=== PATIENT | male | born 1945 | race Caucasian/White ===

== ENCOUNTER 2022-12-12 12:48 | Emergency (ER) | payer OTHER, MEDICAID ==
[2022-12-12] MEDS ORDERED: Naloxone 0.4 MG/ML SDV IVPUSH PRN (14:03)
[2022-12-12 14:11] LABS: ALBUMIN 3.6 g/dL (3.4-5.0); ALKALINE PHOSPHATASE 92 IU/L (46-116); ANION GAP 6.7 meq/L (7-15); ASPARTATE AMNIOTRANSFERASE,AST 21 U/L (15-37); BILIRUBIN TOTAL 0.8 mg/dL (0.2-1.0); BLOOD UREA NITROGEN,BUN 24 mg/dL (7-18); CALCIUM 8.9 mg/dL (8.5-10.1); CARBON DIOXIDE,CO2 29.3 mmol/L (21.0-32.0); CHLORIDE,CL 104 mmol/L (98-107); CREATINE KINASE,CK 259 U/L (26-308); CREATININE 0.83 mg/dL (0.51-1.17); GLUCOSE RANDOM 126 mg/dL (70-99); POTASSIUM,K 4.3 mmol/L (3.5-5.1); SODIUM,NA 140 mmol/L (136-145)
[2022-12-12 14:14] LABS: ESTIMATED GFR 90 mL/min (>=60)
[2022-12-12] MEDS: fentaNYL 50 MCG/ML SDV IVPUSH ONE ×2 (14:28→16:18)
[2022-12-12 15:06] LABS: PROTEIN TOTAL,TP 6.8 g/dL (6.4-8.2)
== END 2022-12-12 16:45 ==
LOC: LL.ED 12:48
DX: S72.142A Displaced intertrochanteric fracture of left femur, initial encounter for closed fracture (principal); Z79.82 Long term (current) use of aspirin; Z88.0 Allergy status to penicillin; W01.10XA Fall on same level from slipping, tripping and stumbling with subsequent striking against unspecified object, initial encounter; Y92.009 Unspecified place in unspecified non-institutional (private) residence as the place of occurrence of the external cause
CPT/HCPCS: 36415; 70450; 73501; 73502; 80053; 82550; 85018; 96374; 96376; 99285; J3010

== ENCOUNTER 2022-12-19 15:47 | Inpatient (IN) | payer MEDICAID ==
[2022-12-21] MEDS ORDERED: Acetaminophen 325 MG Tab PO PRN (14:36)
[2022-12-21] MEDS ORDERED: oxyCODONE 5 MG Tab PO PRN (14:36)
[2022-12-21] MEDS ORDERED: Polyethylene Glycol 3350 Powder 17 GM Packet PO PRN (14:36)
[2022-12-21] MEDS ORDERED: Polyvinyl Alcohol 1.4% Ophth Soln 15 ML Bottle EYERT PRN (14:47)
[2022-12-21 15:20] LABS: ALANINE AMINOTRANSFERASE,ALT 43 U/L (12-78); ALBUMIN 2.7 g/dL (3.4-5.0); ALKALINE PHOSPHATASE 84 IU/L (46-116); ASPARTATE AMNIOTRANSFERASE,AST 40 U/L (15-37); BILIRUBIN TOTAL 1.3 mg/dL (0.2-1.0); BLOOD UREA NITROGEN,BUN 41 mg/dL (7-18); CARBON DIOXIDE,CO2 33.3 mmol/L (21.0-32.0); CHLORIDE,CL 108 mmol/L (98-107); CREATININE 1.12 mg/dL (0.51-1.17); GLUCOSE RANDOM 119 mg/dL (70-99); POTASSIUM,K 4.5 mmol/L (3.5-5.1); PROTEIN TOTAL,TP 6.2 g/dL (6.4-8.2); SODIUM,NA 145 mmol/L (136-145)
[2022-12-21 15:27] LABS: INR 1.2; PROTHROMBIN TIME 11.5 SEC (9.0-11.1)
[2022-12-21 15:31] LABS: ANION GAP 8.2 meq/L (7-15); ESTIMATED GFR 67 mL/min (>=60)
[2022-12-21] MEDS: Albuterol/Ipratropium 3.0-0.5 MG/3 ML Neb Soln NEB SCH ×2 (17:55→20:50)
[2022-12-21] MEDS ORDERED: Iopamidol 755 Mg/ML 100 ML Bottle IVPUSH ONE (18:13)
[2022-12-21] MEDS ORDERED: Iopamidol 755 Mg/ML 100 ML Bottle ONE (18:14)
[2022-12-21] MEDS: FORMOTEROL INH SCH (19:07)
[2022-12-21] MEDS: BUDESONIDE INH SCH (19:07)
[2022-12-21] MEDS: Metoprolol Tartrate 50 MG Tab PO SCH (19:07)
[2022-12-21] MEDS: Calcium Carbonate/Vitamin D3 625 MG-125 Unit Tab PO SCH (19:08)
[2022-12-21] MEDS: Pantoprazole 40 MG Tab.CR PO SCH (19:10)
[2022-12-21] MEDS: Sennosides/Docusate Sodium 50-8.6 MG Tab PO SCH (19:11)
[2022-12-21] MEDS ORDERED: Melatonin 3 MG Tab PO SCH (20:00)
[2022-12-21] MEDS ORDERED: DOXYCYCLINE HYCLATE 100 MG PO SCH (20:00)
[2022-12-21] MEDS ORDERED: LORazepam 2 MG/ML SDV IVPUSH ONE (21:52)
[2022-12-22] MEDS ORDERED: diphenhydrAMINE 50 MG/ML SDV IVPUSH ONE ×2 (00:24→10:17)
[2022-12-22] MEDS: Calcium Carbonate/Vitamin D3 625 MG-125 Unit Tab PO SCH ×2 (07:42→18:20)
[2022-12-22] MEDS: Sennosides/Docusate Sodium 50-8.6 MG Tab PO SCH ×2 (07:43→18:20)
[2022-12-22] MEDS: Metoprolol Tartrate 50 MG Tab PO SCH ×2 (07:50→18:20)
[2022-12-22] MEDS ORDERED: Rosuvastatin 10 MG Tab PO SCH (08:00)
[2022-12-22] MEDS ORDERED: amLODIPine 5 MG Tab PO SCH (08:00)
[2022-12-22] MEDS ORDERED: Tamsulosin 0.4 MG Cap.ER PO SCH (08:00)
[2022-12-22] MEDS ORDERED: Aspirin 81 MG Tab.EC PO SCH (08:00)
[2022-12-22] MEDS: FORMOTEROL INH SCH ×2 (08:01→18:19)
[2022-12-22] MEDS: BUDESONIDE INH SCH ×2 (08:01→18:19)
[2022-12-22] MEDS: Albuterol/Ipratropium 3.0-0.5 MG/3 ML Neb Soln NEB SCH ×3 (08:02→15:51)
[2022-12-22] MEDS ORDERED: LORazepam 2 MG/ML SDV IVPUSH ONE (12:49)
[2022-12-22] MEDS: Pantoprazole 40 MG Tab.CR PO SCH (18:21)
[2022-12-22 19:55] LABS: CORONAVIRUS COVID-19 NAA NEGATIVE (NEGATIVE); INFLUENZA A NAA NEGATIVE (NEGATIVE); INFLUENZA B NAA NEGATIVE (NEGATIVE); RESPIRATORY SYNCYTIAL VIR NAA NEGATIVE (NEGATIVE)
== END 2022-12-22 21:37 | DRG 561 ==
LOC: LL.MS 12-21 13:30
PROVIDERS: ADMIT Physician Assistant; ATTEND Emergency Medicine
DX: S72.142D Displaced intertrochanteric fracture of left femur, subsequent encounter for closed fracture with routine healing (principal); R53.81 Other malaise; G89.18 Other acute postprocedural pain; Z20.822 Contact with and (suspected) exposure to COVID-19; R41.0 Disorientation, unspecified; Z88.0 Allergy status to penicillin; Z79.82 Long term (current) use of aspirin; Z79.899 Other long term (current) drug therapy
CPT/HCPCS: 0241U; 36415; 70450; 71045; 71275; 80053; 82947; 85025; 85610; 94640; 97165-GO; A9270-GY; J1200; J2060; J7620-GY; Q9967